=== PATIENT | male | born 1975 | race Caucasian/White ===

== ENCOUNTER → 2017-08-28 | Outpatient (CLI) | payer OTHER ==
--- NOTE | 2017-08-28 10:24 | DIAGNOSTIC IMAGING REPORT ---
TWO VIEW CHEST CLINICAL HISTORY: Cough and dyspnea. FINDINGS: PA and lateral chest radiographs are obtained. No prior studies are available for comparison at the time of dictation. The cardiomediastinal silhouette is unremarkable. The lungs and pleural spaces are clear. There is no pneumothorax. The bony thorax appears intact. IMPRESSION: No active disease in the chest. Electronically signed by: Dmitry Santana M.D. 08/28/2017 10:23 AM Dictated Date/Time: 08/28/2017 10:22 AM
== END | disposition home or self-care (01) ==
LOC: C.RADPV 10:11
PROVIDERS: ATTEND Family Medicine
DX: R05 Cough (principal)

== ENCOUNTER 2017-09-07 15:28 | Emergency (ER) | payer OTHER ==
[~2017-09-07] VITALS: Ht 172.7 cm; Wt 87.0 kg
[2017-09-07 15:29] VITALS: TEMP 36.8
--- NOTE | 2017-09-07 15:40 | EMERGENCY ROOM VISIT NOTE ---
History Report prepared by Miguel Angel: Sarabjit Brown Under the Supervision of: Dr. Rei Ca M.D. First contact with patient: 15:31 Chief Complaint: COUGH Stated Complaint: DEEP COUGH, TIGHTNESS IN CHEST, TROUBLE BREATHING History of Present Illness The patient is a 42 year old male who presents to the Emergency Room with complaints of waxing and waning shortness of breath that started over the past few weeks. He states that he had been having trouble with shortness of breath episodes especially in the mornings and at night, so he was seen at [facility] 2 weeks ago. He had an EKG and x-ray there. The patient was put on an antibiotic and Prednisone, and he says that he was doing better until about 2 days after he ended the medications. He notes that "everything came back", and yesterday he had a coughing "attack" for 45 minutes. He adds that starting this morning, he has had this chest discomfort that he describes as feeling as if "someone is standing on [his] chest". He states that he is a former smoker, and quit over 10 years ago. 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 The patient says that his father had a heart attack at the age of 48. Source of History: patient, spouse/significant other Onset: Over past few weeks Position: other (global) Quality: other (shortness of breath) Timing: waxes/wanes Modifying Factors (Worsening): other (morning and night) Associated Symptoms: + cough, + chest pain Note: No other associated symptoms noted. Review of Systems See HPI for pertinent positives & negatives. A total of 10 systems reviewed and were otherwise negative. Past Medical & Surgical Medical Problems: (1) No chronic diseases present Family History Diabetes mellitus Heart disease Hypertension Seizures Social History Smoking Status: Former Smoker Alcohol Use: heavy Drug Use: none Housing Status: lives with significant other Occupation Status: employed Current/Historical Medications Scheduled Prednisone (Prednisone Tab), 0 PO DAILY Scheduled PRN Albuterol Sulfate (Proair Respiclick), 2 PUFFS INH UD PRN for Wheezing Hydrocodone W/ Homatropine (Hycodan 5/1.5MG 5 Ml), 5 ML PO HS PRN for Cough Allergies Coded Allergies: No Known Allergies (Unverified , 11/07/06) Physical Exam Vital Signs Date Time Temp Pulse Resp B/P (MAP) Pulse Ox O2 Delivery O2 Flow Rate FiO2 09/07/17 18:37 75 20 150/95 95 09/07/17 17:07 90 27 150/88 93 Room Air 09/07/17 16:37 87 09/07/17 16:13 96 Room Air 09/07/17 16:02 71 16 93 Room Air 09/07/17 15:43 96 Room Air 09/07/17 15:43 96 Room Air 09/07/17 15:29 36.8 85 16 173/105 96 Physical Exam GENERAL: Awake, alert, well-appearing, in no acute distress HENT: Normocephalic, atraumatic. Oropharynx unremarkable. EYES: Normal conjunctiva. Sclera non-icteric. NECK: Supple. No nuchal rigidity. FROM. No JVD. RESPIRATORY: Clear to auscultation. CARDIAC: Regular rate, normal rhythm. Extremities warm and well perfused. Pulses equal. ABDOMEN: Soft, non-distended. No tenderness to palpation. No rebound or guarding. No masses. RECTAL: Deferred. MUSCULOSKELETAL: Chest examination reveals no tenderness. The back is symmetrical on inspection without obvious abnormality. There is no CVA tenderness to palpation. No joint edema. LOWER EXTREMITIES: Calves are equal size bilaterally and non-tender. No edema. No discoloration. NEURO: Normal sensorium. No sensory or motor deficits noted. SKIN: No rash or jaundice noted. Medical Decision & Procedures ER Provider Diagnostic Interpretation: CT results as stated below per my review and radiologist interpretation: (CHEST FOR PE) ANGIO WITH CLINICAL HISTORY: 42 years-old Male presenting with ^Pt c/o SOB. TECHNIQUE: Multidetector CT angiography of the chest was performed after administration of intravenous contrast. 3-D volumetric and/or maximum intensity projection (MIP) images were subsequently reconstructed for review. IV contrast: 90 mL of Optiray 320. A dose lowering technique was used consistent with the principles of ALARA (as low as reasonably achievable). COMPARISON: None. CT DOSE (mGy.cm): The estimated cumulative dose is 390.51 mGy.cm. FINDINGS: Software Test Developer topogram: Unremarkable. Pulmonary vasculature: The study is adequate for assessment of the pulmonary vascular tree. No filling defect within the pulmonary arteries to suggest embolus. Main pulmonary artery is not enlarged. No flattening of the interventricular septum. No intracardiac filling defect. No reflux of contrast into the hepatic veins. Remaining chest: On soft tissue windows, normal thyroid and thoracic inlet. No axillary, supraclavicular, hilar, or mediastinal lymphadenopathy. Normal aorta. Normal heart size. Coronary artery calcification. No pericardial or pleural effusion. Hepatic steatosis. On lung windows, minimal dependent changes likely atelectasis. Minimal paraseptal emphysematous changes at the apices. No other focal nodule or infiltrate. Airways patent. On bone windows, normal osseous structures. IMPRESSION: 1. No evidence of pulmonary embolus. No acute intrathoracic pathology. 2. Hepatic steatosis. Electronically signed by: Darwin Ruiz M.D. 09/07/2017 6:07 PM Dictated Date/Time: 09/07/2017 6:02 PM Laboratory Results 09/07/17 15:52 Red Blood Count 5.01, Mean Corpuscular Volume 93.8, Mean Corpuscular Hemoglobin 33.9, Mean Corpuscular Hemoglobin Concent 36.2, Mean Platelet Volume 9.0, Neutrophils (%) (Auto) 62.2, Lymphocytes (%) (Auto) 27.3, Monocytes (%) (Auto) 8.6, Eosinophils (%) (Auto) 0.9, Basophils (%) (Auto) 0.3, Neutrophils # (Auto) 4.22, Lymphocytes # (Auto) 1.85, Monocytes # (Auto) 0.58, Eosinophils # (Auto) 0.06, Basophils # (Auto) 0.02 09/07/17 15:52 Test 09/07/17 15:52 09/07/17 16:11 White Blood Count 6.78 K/uL (4.8-10.8) Red Blood Count 5.01 M/uL (4.7-6.1) Hemoglobin 17.0 g/dL (14.0-18.0) Hematocrit 47.0 % (42-52) Mean Corpuscular Volume 93.8 fL (80-100) Mean Corpuscular Hemoglobin 33.9 pg (25-34) Mean Corpuscular Hemoglobin Concent 36.2 g/dl (32-36) Platelet Count 243 K/uL (130-400) Mean Platelet Volume 9.0 fL (7.4-10.4) Neutrophils (%) (Auto) 62.2 % Lymphocytes (%) (Auto) 27.3 % Monocytes (%) (Auto) 8.6 % Eosinophils (%) (Auto) 0.9 % Basophils (%) (Auto) 0.3 % Neutrophils # (Auto) 4.22 K/uL (1.4-6.5) Lymphocytes # (Auto) 1.85 K/uL (1.2-3.4) Monocytes # (Auto) 0.58 K/uL (0.11-0.59) Eosinophils # (Auto) 0.06 K/uL (0-0.5) Basophils # (Auto) 0.02 K/uL (0-0.2) RDW Standard Deviation 43.1 fL (36.4-46.3) RDW Coefficient of Variation 12.6 % (11.5-14.5) Immature Granulocyte % (Auto) 0.7 % Immature Granulocyte # (Auto) 0.05 K/uL (0.00-0.02) Urine Color YELLOW Urine Appearance CLEAR (CLEAR) Urine pH 6.0 (4.5-7.5) Urine Specific [place] 1.022 (1.000-1.030) Urine Protein NEG (NEG) Urine Glucose (UA) NEG (NEG) Urine Ketones NEG (NEG) Urine Occult Blood NEG (NEG) Urine Nitrite NEG (NEG) Urine Bilirubin NEG (NEG) Urine Urobilinogen NEG (NEG) Urine Leukocyte Esterase NEG (NEG) Est Creatinine Clear Calc Drug Dose 104.2 ml/min Estimated GFR () 109.6 Estimated GFR (Non- 94.6 BUN/Creatinine Ratio 12.5 (10-20) Calcium Level 8.9 mg/dl (8.5-10.1) Total Bilirubin 0.6 mg/dl (0.2-1) Aspartate Amino Transf (AST/SGOT) 124 U/L (15-37) Alanine Aminotransferase (ALT/SGPT) 253 U/L (12-78) Alkaline Phosphatase 92 U/L (45-117) Total Creatine Kinase 351 U/L (39-308) Creatine Kinase MB 2.5 ng/ml (0.5-3.6) Creatine Kinase MB Ratio 0.7 (0-3.0) Troponin I < 0.015 ng/ml (0-0.045) Total Protein 8.3 gm/dl (6.4-8.2) Albumin 4.1 gm/dl (3.4-5.0) Globulin 4.2 gm/dl (2.5-4.0) Albumin/Globulin Ratio 1.0 (0.9-2) Monoscreen NEG (NEG) Influenza Type A Antigen Neg for Influ A (NEG) Influenza Type B Antigen Neg for Influ B (NEG) Bedside Hemoglobin 16.7 g/dl (14.0-18.0) Bedside Hematocrit 49 % (42-52) Bedside Sodium 136 mEq/L (135-144) Bedside Potassium 3.8 mEq/L (3.3-5.0) Bedside Chloride 100 mEq/L (101-112) Bedside Total CO2 25 mEq/l (24-31) Anion Gap 16.0 mmol/L (16-25) Bedside Blood Urea Nitrogen 13 mg/dl (7-18) Bedside Creatinine 0.9 mg/dl (0.6-1.3) Bedside Glucose (other) 77 mg/dl (70-99) Bedside Ionized Calcium (Nuria) 1.16 mmol/l (1.12-1.32) Labs reviewed by ED physician. Medications Administered Medications (Trade) Dose Ordered Sig/Jhonny Route Start Time Stop Time Status Last Admin Dose Admin Albuterol/ Ipratropium (Duoneb) 12 ml ONE ONCE INH 09/07/17 15:45 09/07/17 15:46 DC 09/07/17 15:57 12 ML Methylprednisolone Sodium Succinate (Solu-Medrol IV) 125 mg NOW STAT IV 09/07/17 18:19 09/07/17 18:21 DC 09/07/17 18:29 125 MG Albuterol (Ventolin Hfa Inhaler) 2 puffs NOW STAT INH 09/07/17 18:19 09/07/17 18:21 DC 09/07/17 18:29 2 PUFFS ECG Per My Interpretation Indication: SOB/dyspnea Rate (beats per minute): 71 Rhythm: normal sinus Findings: other (no ST elevation or depression, normal axis) ED Course 1531: Past medical records reviewed. The patient was evaluated in room C10. A complete history and physical examination was performed. 1544: DuoNeb 12 ml INH. 1818: I reevaluated the patient and asked him about his drinking of alcohol, and he admits to drinking heavily. I told him to stop until he gets to the bottom of this current issue. I discussed results and treatment plan with the patient. He verbalizes agreement and understanding. The patient is ready for discharge. Ordered Ventolin Hfa Inhaler 2 puffs INH, Solu-Medrol IV 125 mg. Medical Decision Differential diagnosis: Etiologies such as infections, reactive airway disease, pneumonia, pneumothorax , COPD, CHF, cardiac ischemia, pulmonary embolism, musculoskeletal, gastrointestinal, as well as others were entertained. This is a 42-year-old male who presents the emergency department complaining of shortness of breath. The patient was given an hour-long breathing treatment here in the emergency department. He had a CAT scan of the chest which does not show any acute process. In addition the patient has a normal EKG. The patient reports the hour-long breathing treatment had much improvement in the patient's symptoms. The patient admits to heavy drinking every day and I stressed to him that he should stop his drinking until he gets to the bottom of this. I believe this explains the elevation in his liver enzymes. The patient was also started on Solu-Medrol and will continue him on a prednisone taper pending follow-up with pulmonology. Medication Reconcilliation Current Medication List: was personally reviewed by me Blood Pressure Screening Patient's blood pressure: Elevated blood pressure Blood pressure disposition: Referred to PCP Impression Primary Impression: Acute bronchitis Scribe Attestation The scribe's documentation has been prepared under my direction and personally reviewed by me in its entirety. I confirm that the note above accurately reflects all work, treatment, procedures, and medical decision making performed by me. Departure Information Dispostion Home / Self-Care Prescriptions Hydrocodone W/ Homatropine (HYCODAN 5/1.5MG 5 ML) 1 Syp Syp 5 ML PO HS Y for Cough, #120 ML Prov: Rei Ca MD 09/07/17 Prednisone (Prednisone Tab) 20 Mg Tab 0 PO DAILY, #7 TAB 2 TABS DAILY FOR 2 DAYS, THEN 1 TAB DAILY FOR 2 DAYS, THEN 1/2 TAB DAILY FOR 2 DAYS. Prov: Rei Ca MD 09/07/17 Referrals Isamar Contreras M.D. (PCP) Barry Keen M.D. Patient Instructions Bronchitis Acute, My [facility] Additional Instructions Use inhaler twice every 6 hours Follow up with Dr Keen's office You were found to have an elevated blood pressure today (>120 sytolic or >90 diastolic). Per medicare guidelines, you need to follow up with this blood pressure screening with your Primary Care Physician (PCP). For a new PCP call [phone]. You have been examined and treated today on an emergency basis only. This is not a substitute for, or an effort to provide, complete comprehensive medical care. It is impossible to recognize and treat all injuries or illnesses in a single emergency department visit. It is therefore important that you follow up closely with Dr Contreras. Call as soon as possible for an appointment. Thank you for your time and consideration. I look forward to speaking with you again soon. Please don't hesitate to call us if you have any questions. Problem Qualifiers Primary Impression: Acute bronchitis Bronchitis organism: unspecified organism Qualified Codes: J20.9 - Acute bronchitis, unspecified
[2017-09-07 15:43] VITALS: O2SAT 96; Ht 172.7 cm; Wt 87.0 kg
[2017-09-07] MEDS ORDERED: ALBUT/IPRATROP 3MG/0.5MG NEB 3 ML VIAL INH ONE (15:45)
[2017-09-07] MEDS ORDERED: ALBU18002 INH (15:53)
[2017-09-07 16:02] VITALS: PULSE 71; O2SAT 93
[2017-09-07 16:09] LABS: BASO % 0.3 %; BASO ABS # 0.02 K/uL (0-0.2); EOS % 0.9 %; EOS ABS # 0.06 K/uL (0-0.5); IG# 0.05 K/uL (0.00-0.02); LYMPH % 27.3 %; LYMPH ABS # 1.85 K/uL (1.2-3.4); MEAN CELL VOLUME 93.8 fL (80-100); MEAN CORPUSCULAR HEMOGLOBIN 33.9 pg (25-34); MEAN CORPUSCULAR HGB CONC 36.2 g/dl (32-36); MONO % 8.6 %; MONO ABS # 0.58 K/uL (0.11-0.59); NEUT % 62.2 %; NEUT ABS # 4.22 K/uL (1.4-6.5); PLATELET COUNT 243 K/uL (130-400); RED CELL DISTRIBUTION WIDTH CV 12.6 % (11.5-14.5); RED CELL DISTRIBUTION WIDTH SD 43.1 fL (36.4-46.3); WHITE BLOOD COUNT 6.78 K/uL (4.8-10.8)
[2017-09-07 16:25] LABS: INFLUENZA B ANTIGEN Neg for Influ B (NEG)
[2017-09-07 16:29] LABS: ISTAT CREATININE 0.9 mg/dl (0.6-1.3); ISTAT IONIZED CALCIUM 1.16 mmol/l (1.12-1.32); ISTAT POTASSIUM 3.8 mEq/L (3.3-5.0)
[2017-09-07 16:31] LABS: ALBUMIN 4.1 gm/dl (3.4-5.0); ALT/SGPT 253 U/L (12-78); BLOOD UREA NITROGEN 12 mg/dl (7-18); CALCIUM 8.9 mg/dl (8.5-10.1); CARBON DIOXIDE 27 mmol/L (21-32); CREATININE 0.97 mg/dl (0.60-1.40); GLUCOSE 72 mg/dl (70-99); POTASSIUM 3.9 mmol/L (3.5-5.1); SODIUM 134 mmol/L (136-145)
[2017-09-07 16:36] LABS: ALKALINE PHOSPHATASE 92 U/L (45-117); AST/SGOT 124 U/L (15-37); CKMB 2.5 ng/ml (0.5-3.6); TOTAL PROTEIN 8.3 gm/dl (6.4-8.2)
[2017-09-07] MEDS ORDERED: OPTIRAY 320 IV PRN (18:00)
--- NOTE | 2017-09-07 18:08 | DIAGNOSTIC IMAGING REPORT ---
(CHEST FOR PE) ANGIO WITH CLINICAL HISTORY: 42 years-old Male presenting with ^Pt c/o SOB. TECHNIQUE: Multidetector CT angiography of the chest was performed after administration of intravenous contrast. 3-D volumetric and/or maximum intensity projection (MIP) images were subsequently reconstructed for review. IV contrast: 90 mL of Optiray 320. A dose lowering technique was used consistent with the principles of ALARA (as low as reasonably achievable). COMPARISON: None. CT DOSE (mGy.cm): The estimated cumulative dose is 390.51 mGy.cm. FINDINGS: Mat Gauger topogram: Unremarkable. Pulmonary vasculature: The study is adequate for assessment of the pulmonary vascular tree. No filling defect within the pulmonary arteries to suggest embolus. Main pulmonary artery is not enlarged. No flattening of the interventricular septum. No intracardiac filling defect. No reflux of contrast into the hepatic veins. Remaining chest: On soft tissue windows, normal thyroid and thoracic inlet. No axillary, supraclavicular, hilar, or mediastinal lymphadenopathy. Normal aorta. Normal heart size. Coronary artery calcification. No pericardial or pleural effusion. Hepatic steatosis. On lung windows, minimal dependent changes likely atelectasis. Minimal paraseptal emphysematous changes at the apices. No other focal nodule or infiltrate. Airways patent. On bone windows, normal osseous structures. IMPRESSION: 1. No evidence of pulmonary embolus. No acute intrathoracic pathology. 2. Hepatic steatosis. Electronically signed by: Darwin Ruiz M.D. 09/07/2017 6:07 PM Dictated Date/Time: 09/07/2017 6:02 PM
[2017-09-07] MEDS ORDERED: ALBUTEROL HFA 8 GM INHALER INH STA (18:19)
[2017-09-07] MEDS ORDERED: METHYLPREDNISOLONE 125 MG VIAL IV STA (18:19)
[2017-09-07] MEDS ORDERED: PRED20TA2 PO (18:23)
[2017-09-07] MEDS ORDERED: HYDR5SYP11 PO (18:23)
[2017-09-07 18:37] VITALS: BP 150/95; PULSE 75; O2SAT 95
[2017-09-10 14:36] LABS: EBV EARLY ANTIGEN AB < 9.00 U/ML
== END 2017-09-07 18:38 | disposition home or self-care (01) ==
LOC: C.EDB 15:28 → C.EDC 18:38
DX: J20.9 Acute bronchitis, unspecified (principal); R05 Cough; R06.02 Shortness of breath; Z87.891 Personal history of nicotine dependence; Z82.49 Family history of ischemic heart disease and other diseases of the circulatory system